=== PATIENT | female | born 1940 | race Caucasian/White ===

== ENCOUNTER 2025-01-23 15:58 | Emergency (ER) | payer MEDICARE, SELFPAY ==
[2025-01-23 16:07] VITALS: PULSE 52; TEMP 36.6; O2SAT 98; BMI 37.8
[2025-01-23 16:22] VITALS: BP 169/87
--- NOTE | 2025-01-23 16:27 | ED.GENADUL1 ---
HPI HPI - General Adult General Chief complaint: Wound/Laceration Stated complaint: LACERATION Time Seen by Provider: 01/23/25 16:17 Source: patient Mode of arrival: Wheelchair Limitations: no limitations History of Present Illness HPI narrative: 84-year-old female presents for laceration to her left lower leg. This was sustained when a laptop computer fell and it cut her. She is from [place] and is traveling back home. She came to this hospital since it was the nearest facility. No other wound was sustained. Last tetanus is uncertain but is more than 10 years ago. Most of the history is obtained from the patient's granddaughter. She is on Eliquis. Related Data Previous Rx's ?Medication ?Instructions ?Recorded cephalexin 500 mg capsule 500 mg PO TID 7 days #21 caps 01/23/25 Allergies Allergy/AdvReac Type Severity Reaction Status Date / Time latex AdvReac Intermediate Unknown Verified 01/23/25 16:07 Opioid HPI Opioid Management Most Recent Opioid Data: No Data to Display Review of Systems ROS Narrative A ten point review of systems is negative except as noted above. PFSH PFSH Social History Little interest or pleasure in doing things: not at all Feeling down, depressed, or hopeless: not at all Exam Narrative Exam Narrative: Nurses note and vital signs reviewed and patient is not hypoxic. General: The patient appears well and in no apparent distress. Skin: Warm, dry, no pallor noted. There is no rash noted. Head: Normocephalic, atraumatic Eye: Normal conjunctiva, no drainage Ears, Nose, Mouth, and Throat: oral mucosa is moist. Nares patent. Cardiovascular: Irregularly Respiratory: Patient is in no distress, no accessory muscle use, lungs are clear to auscultation, no wheezing, rales or rhonchi GI: Nontender Musculoskeletal: Left lower leg has a 10 cm C-shaped laceration. There is minimal bleeding, easily controlled with pressure. The skin is quite thin. Neurological: Awake and alert Psychiatric: Cooperative Constitutional Vital Signs, click to edit/add: Last Vital Signs Temp 97.9 F 01/23/25 16:07 Pulse 52 L 01/23/25 16:07 Resp 18 01/23/25 16:07 BP 169/87 H 01/23/25 16:22 Pulse Ox 98 01/23/25 16:07 O2 Del Method Room Air 01/23/25 16:07 Course Vital Signs Vital signs: Vital Signs Temperature 97.9 F 01/23/25 16:07 Pulse Rate 52 L 01/23/25 16:07 Respiratory Rate 18 01/23/25 16:07 Pulse Oximetry 98 01/23/25 16:07 Oxygen Delivery Method Room Air 01/23/25 16:07 Temperature 97.9 F 01/23/25 16:07 Pulse Rate 52 L 01/23/25 16:07 Respiratory Rate 18 01/23/25 16:07 Blood Pressure 169/87 H 01/23/25 16:22 Pulse Oximetry 98 01/23/25 16:07 Oxygen Delivery Method Room Air 01/23/25 16:07 Medical Decision Making MDM Narrative Medical decision making narrative: Sutures are not indicated. The skin is too thin for repair. The wound was cleansed and Gelfoam was applied and a dressing was applied. Tetanus is updated and she will follow-up with a wound care physician in her hometown area. Findings are discussed thoroughly with the patient and her family. Differential Diagnosis Differential Diagnosis: Laceration, need for tetanus immunization Discharge Plan Discharge Chief Complaint: Wound/Laceration Clinical Impression: Laceration of left lower leg Patient Disposition: Home, Self-Care Time of Disposition Decision: 16:24 Condition: Good Mode of Transportation: Private Vehicle Prescriptions / Home Meds: New cephalexin 500 mg capsule 500 mg PO TID 7 Days Qty: 21 0RF Print Language: Tristanian Instructions: Laceration Without Closure (ED) Additional Instructions: Follow-up with wound care physician in your area at home.
[2025-01-23] MEDS: SURGIFOAM GEL SPONGE SIZE 100 1 EACH TOPICAL (16:34)
[2025-01-23] MEDS: ADACEL DIPH,PERTUSS(ACELL),TET VAC/PF 0.5 ML ADULT SYRINGE IM (16:39)
--- NOTE | 2025-01-23 16:43 | PC.NURSE ---
Wound to left lower leg cleansed with chlorhexidine and covered with gel foam, xerofoam, and wrapped with kerlex and mary wrap.
== END 2025-01-23 16:54 | disposition home or self-care (01) ==
PROVIDERS: Emergency Provider Emergency Medicine
DX: S81.812A Laceration without foreign body, left lower leg, initial encounter (principal); W22.8XXA Striking against or struck by other objects, initial encounter; Z79.01 Long term (current) use of anticoagulants; Z23 Encounter for immunization
CPT/HCPCS: 90471; 90715; 99285